=== PATIENT | female | born 1980 ===

== ENCOUNTER 2025-08-21 08:09 | Outpatient (AMB) | payer OTHER, SELFPAY ==
--- NOTE | 2025-08-21 10:33 | MHC.OFFVISWM ---
VS Expanded 08/21/25 10:44 BP 118/76 Blood Pressure Location Rt brachial Blood Pressure Position Sitting Pulse 63 Pulse Source Pulse Oximeter Temp 97.5 F Temperature Source Temporal Artery Scan Pulse Oximetry 100 Oxygen Delivery Method Room Air Height 5 ft 4 in Weight 190 lb 3.2 oz BMI 32.6 Body Fat % 35.0 Body Fat Mass 66.6 Fat Free Mass 123.4 Visceral Fat Rating 8.0 Body Water % 446.4 Body Water Mass 88.2 Muscle Mass/Score 117.2 Basal Metabolic Rate/Score 1,681 Intake Visit Reasons: [employer] [facility] BMI 33.8 Allergies prednisone Allergy (Intermediate, Verified 08/21/25 10:42) SWELLING Medication List - Last Reconciled 08/21/25 by Jacek Matta MD tirzepatide (weight loss) (Zepbound) 7.5 mg subcut QWEEK HPI Comments Details: Previous weight loss efforts: Zepbound up to 7.5mg: lost 20lbs in 5mths Wakes up: 5.30am, Sleeps: 10pm Breakfast: skips Lunch: 12pm (chicken shrimp, salad) Dinner: 5pm (same) Snacks: 10am (yogurt, grapes) Exercise: treadmill (tracks calories, no incline) Beverages: Coffee: none, Tea: 3/wk (honey), Soda: none, Juice: none, ETOH: 2/wk (Tequila with [place]) [facility] Medical History (Updated 08/21/25 @ 11:20 by Jacek Matta MD) BMI 33.0-33.9,adult Obesity Surgical History Hx of plastic surgery Family History Mother No problems noted. Father No problems noted. Daughter No problems noted. Daughter No problems noted. Social History (Updated 08/21/25 @ 10:42 by Jeannette Andrade CMA) Alcohol intake: current Alcohol intake frequency: a few times a week Patient Tobacco Use Status: Never used Tobacco Physical Exam GI Inspection: Yes normal to inspection and Yes obesity Palpation (GI): Soft to palpation Extrem Right lower extremity: normal to inspection Left lower extremity: normal to inspection Assessment & Plan Assessment & Plan (1) Obesity: Code(s): E66.9 - Obesity, unspecified Category: Medical Qualifiers: Obesity type: due to excess calories Obesity classification: adult class 1 (BMI 30 - 34.9) Serious obesity comorbidity presence: without serious comorbidity Body mass index: BMI 33.0-33.9 Qualified Code(s): E66.811 - Obesity, class 1; E66.09 - Other obesity due to excess calories; Z68.33 - Body mass index [BMI] 33.0-33.9, adult Plan: 1.?Nutritional counseling. Start with one premade PREMIER protein (buy at [employer] or [employer]) shake (mix 4oz of Premier mixed with 4oz low fat unsweetened almond milk each) at 7am-9am, one protein bar (Fit Crunch protein bar, buy at [employer], or [employer]) at 10am-12pm, another premade PREMIER protein shake (mix 4oz of Premier mixed with 4oz low fat unsweetened almond milk each) at 1pm-3pm, another [employer] protein bar,? dinner at 7pm (8 forks of protein and 8 forks of salad/vegetables) and HALF protein bar after dinner at 9pm-10pm So you do 2 protein shakes, 2.5 protein bars and one meal per day. Meal to include lean meat (beef, fish, pork, turkey, chicken), or armenian yogurt, or egg whites, or beans with a salad with olive oil and fruits (berries, pears, apples, kiwi). Avoid salt, breads, potatoes, rice, pasta, desserts. 3. Each shake would be drunk slowly, like coffee in a period of 2 hours. 4. Cut each bar in 4 pieces and eat each piece in 30min ?to make each bar last 2 hours. 5. I emphasized the importance of measuring accurately the food portion and measure it when serving the food in plate 6. The meal portions include 8 full-size forks of meat and 8 full-size forks of salad. You always eat the meat portion but you can replace up to 4 forks for salad/vegetables with rice, potatoes or pasta, or a fruit ?if you like. The less you do it the better weight loss will be. 7. One full-size fork is what it can be scooped on the fork without falling aside and not what can be bit with the fork. Use regular forks like those you find in a typical restaurant. 8.? Please buy the body composition scale we discussed and send me weight measurements as soon as possible and then once a week. Always include your diet and exercise plan. 9. Start treadmill with a speed of 3.0. Increase speed by 0.5 every 3 min to a max speed of 6.0, stay 3min at 6.0 and then return to speed 3.0 and repeat same steps until calorie goal is met. Goal is to burn 2000 calories per week on exercise, which means either 300 calories daily. 10. Continue the Zepbound 7.5mg/week. Let me know when you have one injection left. Common side effects include nausea, vomiting, constipation, diarrhea, abdominal pain. Please let me know if you develop any of these symptoms. 11.?It is important of avoiding and for at least 18 months postoperatively and has been discussed at the infosession. 12. Goal is to lose at least 1.5-2lbs per week 13. Goal to lose at least 10% of your weight, which is about 20lbs. Ultimate weight goal: 177lbs before surgery 14. Please follow the diet plan exactly without any change. If you don't like something about the plan or you feel hungry you need to communicate with me so I can help you revise the plan. You should not change the plan yourself
[2025-08-21 10:44] VITALS: BP 118/76; PULSE 63; TEMP 36.4; O2SAT 100; BMI 32.6
== END 2025-08-21 11:28 | disposition home or self-care (01) ==
PROVIDERS: Visit Provider Surgery
DX: E66.811 Obesity, class 1 (principal); E66.09 Other obesity due to excess calories; Z68.33 Body mass index [BMI] 33.0-33.9, adult
CPT/HCPCS: 99204

== ENCOUNTER → 2025-08-21 08:09 | Outpatient (BNVA) | payer OTHER, SELFPAY | PROVIDERS: Visit Provider Surgery | DX: E66.811 Obesity, class 1 (principal); Z68.33 Body mass index [BMI] 33.0-33.9, adult | CPT/HCPCS: 99202 ==